=== PATIENT | female | born 1970 | race Caucasian/White ===

== ENCOUNTER 2017-03-10 21:33 | Emergency (ER) | END 2017-03-11 06:31 | disposition home or self-care (01) ==

== ENCOUNTER 2017-09-08 09:36 | Day surgery (SDC) | END 2017-09-08 12:12 | disposition home or self-care (01) ==

== ENCOUNTER 2017-11-24 10:23 | Inpatient (IN) | END 2017-11-26 11:15 | disposition home or self-care (01) | DRG 331 ==

== ENCOUNTER 2018-03-06 12:00 | Inpatient (IN) | END 2018-03-06 12:25 | disposition home or self-care (01) | DRG 392 ==

== ENCOUNTER 2018-03-20 07:44 | Emergency (ER) | payer OTHER ==
[~2018-03-20] VITALS: Ht 165.1 cm; Wt 72.2 kg
[~2018-03-20 07:44] MED LIST: ACET-2047 PO; IBUP-1542 PO; LORA1TAB PO; LURA40TA PO; PROP10TA6 PO
[2018-03-20 07:47] VITALS: Ht 165.1 cm; Wt 72.2 kg
[2018-03-20] MEDS ORDERED: BUPR75TA9 PO (08:15)
[2018-03-20] MEDS ORDERED: NITROFURANTOIN (SR) 100 MG CAP PO ONE (10:30)
[2018-03-20] MEDS ORDERED: NITR-58 PO (11:17)
--- NOTE | 2018-03-20 11:20 | ERD ---
ER Documentation Chief Complaint Chief Complaint depressed "i wanted to take pills this morning" suicidal ideation HPI Patient is a 47-year-old female with colon cancer and depression who presents tearful. She says that she could not sleep. She says "my mind got blocked". It started Monday with depression. She takes medications for depression. She has suicidal ideation with thoughts of overdosing on pills. She does have a history of colon cancer but that has in remission and she is taking prophylactic chemotherapy which she has with her. Upon review of old medical records this is the patient's ninth visit to the ER since 2008. ROS All systems reviewed and are negative except as per history of present illness. Medications Home Meds Active Scripts Nitrofurantoin Monohyd Macrocr* (Macrobid*) 100 Mg Capsr, 100 MG PO BID for 7 Days, CAP Prov:DANNA VICTORIA MD 03/20/18 Reported Medications Bupropion Hcl (Wellbutrin) 75 Mg Tablet, 75 MG PO BID, TAB 03/20/18 Propranolol Hcl* (Propranolol Hcl*) 10 Mg Tablet, 10 MG PO BID, TAB 03/04/18 Lurasidone Hcl (LATUDA) 40 Mg Tablet, 40 MG PO HS, TAB 11/24/17 Lorazepam* (Lorazepam*) 1 Mg Tablet, 2 MG PO HS, TAB 11/24/17 Discontinued Scripts Ibuprofen* (Ibuprofen*) 600 Mg Tablet, 600 MG PO Q4H, #14 TAB Prov:MORENA BAKER MD 03/06/18 Acetaminophen* (Acetaminophen*) 650 Mg Tablet, 650 MG PO Q6H PRN for PAIN AND OR ELEVATED TEMP, #24 TAB Prov:MORENA BAKER MD 03/06/18 Allergies Allergies: Coded Allergies: No Known Allergy (Unverified , 03/20/18) PMhx/Soc History of Surgery: Yes (COLON CA SURGERY ) Anesthesia Reaction: No Hx Neurological Disorder: No Hx Respiratory Disorders: No Hx Cardiac Disorders: No Hx Psychiatric Problems: No (Anxiety and depression.) Hx Miscellaneous Medical Probl: Yes (colon cancer with hx radiation, anemia ) Hx Alcohol Use: No Hx Substance Use: No Hx Tobacco Use: No Smoking Status: Never smoker FmHx Family History: diabetes Physical Exam Vitals Vital Signs Date Temp Pulse Resp B/P (MAP) Pulse Ox O2 O2 Flow FiO2 Time Delivery Rate 03/20/18 97.0 83 18 142/88 96 07:47 (106) Physical Exam Const: No acute distress Head: Atraumatic Eyes: Normal Conjunctiva ENT: Normal External Ears, Nose and Mouth. Neck: Full range of motion. No meningismus. Resp: Clear to auscultation bilaterally Cardio: Regular rate and rhythm, no murmurs Abd: Soft, non tender, non distended. Normal bowel sounds Skin: No petechiae or rashes Back: No midline or flank tenderness Ext: No cyanosis, or edema Neur: Awake and alert Psych: Depressed affect with suicidal ideation with plan Result Diagram: 03/20/1819 03/20/18818 Results 24 hrs Laboratory Tests Test 03/20/18 08:14 03/20/18 08:18 03/20/18 08:19 Urine Color YELLOW Urine Clarity SLIGHTLY CLOUDY Urine pH 5.0 Urine Specific [place] 1.017 Urine Ketones NEGATIVE mg/dL Urine Nitrite NEGATIVE mg/dL Urine Bilirubin NEGATIVE mg/dL Urine Urobilinogen NEGATIVE mg/dL Urine Leukocyte Esterase 1+ Viviane/ul Urine Microscopic RBC 7 /HPF Urine Microscopic WBC 53 /HPF Urine Squamous Epithelial Cells FEW /HPF Urine Bacteria FEW /HPF Urine Mucus FEW /HPF Urine Hemoglobin 2+ mg/dL Urine Glucose NEGATIVE mg/dL Urine Total Protein NEGATIVE mg/dl Urine Opiates Screen NEGATIVE Urine Barbiturates NEGATIVE Urine Amphetamines Screen NEGATIVE Urine Benzodiazepines Screen NEGATIVE Urine Cocaine Screen NEGATIVE Urine Cannabinoids NEGATIVE POC Beta HCG, Qualitative NEGATIVE White Blood Count 3.8 10^3/ul Red Blood Count 4.29 10^6/ul Hemoglobin 11.7 g/dl Hematocrit 35.0 % Mean Corpuscular Volume 81.6 fl Mean Corpuscular Hemoglobin 27.3 pg Mean Corpuscular 33.4 g/dl Hemoglobin Concent Red Cell Distribution Width 25.1 % Platelet Count 227 10^3/UL Mean Platelet Volume 9.0 fl Immature Granulocytes % 0.000 % Neutrophils % 35.1 % Lymphocytes % 52.1 % Monocytes % 11.4 % Eosinophils % 1.1 % Basophils % 0.3 % Nucleated Red Blood Cells % 0.0 /100WBC Immature Granulocytes # 0.000 10^3/ul Neutrophils # 1.3 10^3/ul Lymphocytes # 2.0 10^3/ul Monocytes # 0.4 10^3/ul Eosinophils # 0.0 10^3/ul Basophils # 0.0 10^3/ul Nucleated Red Blood Cells # 0.0 10^3/ul Sodium Level 137 mmol/L Potassium Level 3.9 mmol/L Chloride Level 102 mmol/L Carbon Dioxide Level 24 mmol/L Anion Gap 11 Blood Urea Nitrogen 14 mg/dl Creatinine 0.62 mg/dl Est Glomerular Filtrat > 60 mL/min Rate mL/min Glucose Level 128 mg/dl Calcium Level 9.0 mg/dl Total Bilirubin 1.3 mg/dl Direct Bilirubin 0.00 mg/dl Indirect Bilirubin 1.3 mg/dl Aspartate Amino Transf (AST/SGOT) 26 IU/L Alanine 29 IU/L Aminotransferase (ALT/SGPT) Alkaline Phosphatase 104 IU/L Total Protein 7.0 g/dl Albumin 3.9 g/dl Globulin 3.10 g/dl Albumin/Globulin Ratio 1.25 Salicylates Level < 1.0 mg/dl Acetaminophen Level < 10.0 ug/ml Ethyl Alcohol Level < 10.0 mg/dl Current Medications Medications Dose Sig/Mago Start Time Status Last (Trade) Ordered Route PRN Stop Time Admin Dose Reason Admin 100 mg ONCE ONCE 03/20/18 DC Nitrofurantoi PO 10:30 03/20/18 n 10:31 Macrocrystals (Macrobid) Procedures/MDM Patient is a 47-year-old female who presents with suicidal ideation with plan. She has been recommended a 5150 hold by psychiatry. The patient does have a history of colon cancer in remission and is on prophylactic chemotherapy. She has this medicine with her so does not needed to be prescribed to her. She was found to have acute cystitis and will be treated with Macrobid. A prescription was given and Macrobid first dose was given in the emergency department. She is medically clear for psychiatric admission at this time. We are awaiting facility for transfer. Departure Diagnosis: Primary Impression: Suicidal ideation Additional Impression: Cystitis Condition: Serious Patient Instructions: Cystitis Additional Instructions: Llame al doctor ankit fleming (Referral Sources) MAANA y kim sonia LISANDRA PARA DENTRO DE SONIA SEMANA. Dgale a la secretaria que nosotros le instruimos hacer esta lisandra.Avise o llame si lafleur condicin se empeora antes de la lisandra. DANNA VICTORIA MD Mar 20, 2018 11:20
--- NOTE | 2018-03-20 11:28 | PSY ---
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 She has been increasingly depressed for the past a few weeks, hopeless, helpless; thinks of suicide for the past 3 days. No HI, no AH or Vh. Pt has colon Cn and is undergoing chemo. Past psychiatric history pt's last inpt was 3 months ago for SI Hospitalization: yes Family History denies Medical history Problems Medical Problems: (1) Acute pancreatitis Status: Acute (2) Cystitis Status: Acute (3) Dehydration Status: Acute (4) Hemorrhagic cystitis Status: Acute (5) History of colon cancer Status: Acute (6) Nausea vomiting and diarrhea Status: Acute (7) Suicidal ideation Status: Acute (8) Vomiting Status: Acute Allergies: Coded Allergies: No Known Allergy (Unverified , 03/20/18) Substance Abuse Substance use: No known substance abuse Social History Marital status: DPA/Conservatorship: No Psychiatric Objective Eval Review of Systems: Review of Systems: Not Applicable Physical Examination: Sleep: Insomnia Appetite: Decreased Energy: Decreased Interest: Decreased Mental Status Examination: Appearance: Groomed Eye Contact: Fair Psychomotor Activity: Normal Behavior: Cooperative Speech: Monotone AFFECT: Depressed Mood: Depressed Though Process: Linear Thought Content: Normal Suicidal: Yes Homicidal: No On 72 hour hold: No Cognition: Alert Insight: Intact Judgement: Intact Laboratory Results Laboratory Tests Test 03/20/18 08:14 03/20/18 08:18 03/20/18 08:19 Urine Color YELLOW Urine Clarity SLIGHTLY CLOUDY Urine pH 5.0 Urine Specific [place] 1.017 Urine Ketones NEGATIVE mg/dL Urine Nitrite NEGATIVE mg/dL Urine Bilirubin NEGATIVE mg/dL Urine Urobilinogen NEGATIVE mg/dL Urine Leukocyte Esterase 1+ Viviane/ul Urine Microscopic RBC 7 /HPF Urine Microscopic WBC 53 /HPF Urine Squamous Epithelial Cells FEW /HPF Urine Bacteria FEW /HPF Urine Mucus FEW /HPF Urine Hemoglobin 2+ mg/dL Urine Glucose NEGATIVE mg/dL Urine Total Protein NEGATIVE mg/dl Urine Opiates Screen NEGATIVE Urine Barbiturates NEGATIVE Urine Amphetamines Screen NEGATIVE Urine Benzodiazepines Screen NEGATIVE Urine Cocaine Screen NEGATIVE Urine Cannabinoids NEGATIVE POC Beta HCG, Qualitative NEGATIVE White Blood Count 3.8 10^3/ul Red Blood Count 4.29 10^6/ul Hemoglobin 11.7 g/dl Hematocrit 35.0 % Mean Corpuscular Volume 81.6 fl Mean Corpuscular Hemoglobin 27.3 pg Mean Corpuscular 33.4 g/dl Hemoglobin Concent Red Cell Distribution Width 25.1 % Platelet Count 227 10^3/UL Mean Platelet Volume 9.0 fl Immature Granulocytes % 0.000 % Neutrophils % 35.1 % Lymphocytes % 52.1 % Monocytes % 11.4 % Eosinophils % 1.1 % Basophils % 0.3 % Nucleated Red Blood Cells % 0.0 /100WBC Immature Granulocytes # 0.000 10^3/ul Neutrophils # 1.3 10^3/ul Lymphocytes # 2.0 10^3/ul Monocytes # 0.4 10^3/ul Eosinophils # 0.0 10^3/ul Basophils # 0.0 10^3/ul Nucleated Red Blood Cells # 0.0 10^3/ul Sodium Level 137 mmol/L Potassium Level 3.9 mmol/L Chloride Level 102 mmol/L Carbon Dioxide Level 24 mmol/L Anion Gap 11 Blood Urea Nitrogen 14 mg/dl Creatinine 0.62 mg/dl Est Glomerular Filtrat > 60 mL/min Rate mL/min Glucose Level 128 mg/dl Calcium Level 9.0 mg/dl Total Bilirubin 1.3 mg/dl Direct Bilirubin 0.00 mg/dl Indirect Bilirubin 1.3 mg/dl Aspartate Amino Transf (AST/SGOT) 26 IU/L Alanine 29 IU/L Aminotransferase (ALT/SGPT) Alkaline Phosphatase 104 IU/L Total Protein 7.0 g/dl Albumin 3.9 g/dl Globulin 3.10 g/dl Albumin/Globulin Ratio 1.25 Salicylates Level < 1.0 mg/dl Acetaminophen Level < 10.0 ug/ml Ethyl Alcohol Level < 10.0 mg/dl Assessment and Plan Assessment/Diagnosis Diagnosis MAJOR DEPRESSIVE DISORDER RECURRENT SEVERE Recommendation/Plan Medication Management LATUDA 60 MG POQD WITH FOOD; START REMERON 15 MG POQHS Discharge Disposition: Psychiatric inpatient Legal Status: Voluntary Other D/W SW - TRANSFER TO [facility] FOR DTS. JERRY URIAS MD Mar 20, 2018 11:28
[2018-03-20 14:44] VITALS: BP 143/82; PULSE 84; RESP 17
[2018-03-20] MEDS ORDERED: MIRTAZAPINE 15 MG TAB PO SCH (21:00)
== END 2018-03-20 14:58 ==
LOC: E/R 07:44
DX: R45.851 Suicidal ideations (principal); N30.90 Cystitis, unspecified without hematuria; Z85.038 Personal history of other malignant neoplasm of large intestine
CPT/HCPCS: 36415; 80053; 80306; 80307; 81001; 81025; 85025; Z7502; Z7610